=== PATIENT | female | born 1995 | race Caucasian/White ===

== ENCOUNTER 2018-05-13 20:15 | Emergency (ER) | payer OTHER ==
[~2018-05-13] VITALS: Ht 160 cm; Wt 65.8 kg
[~2018-05-13 20:15] MED LIST: BIRTH CONTROL1 EAC1 PO; KEFLEX500 MG PO; LIDEX0.05% T
== END 2018-05-13 21:17 | disposition home or self-care (01) ==
LOC: ED 20:15
DX: S61.303A Unspecified open wound of left middle finger with damage to nail, initial encounter (principal); X58.XXXA Exposure to other specified factors, initial encounter; Y93.89 Activity, other specified; Y92.89 Other specified places as the place of occurrence of the external cause; Y99.8 Other external cause status